=== PATIENT | male | born 1970 | race Hispanic/Latino ===

== ENCOUNTER 2024-04-26 12:33 | Emergency (ER) | payer OTHER ==
[~2024-04-26] VITALS: Ht 182.9 cm; Wt 97.5 kg
[2024-04-26 13:16] LABS: BASOPHILS # (AUTO) 0.03 K/uL (0.00-0.20); BASOPHILS % (AUTO) 0.3 % (0.0-5.0); EOSINOPHILS # (AUTO) 0.12 K/uL (0.00-0.70); EOSINOPHILS % (AUTO) 1.3 % (0.0-8.0); HEMATOCRIT 41.2 % (42-54); IMMATURE GRANULOCYTE ABSOLUTE 0.04 K/uL (0-1); LYMPHOCYTES # (AUTO) 0.7 K/uL (1.0-4.8); LYMPHOCYTES % (AUTO) 8.2 % (21.0-51.0); MEAN CORPUSCULAR HEMOGLOBIN 30.8 pg (27.0-33.0); MEAN CORPUSCULAR HGB CONC 35.4 g/dL (32.0-36.0); MEAN CORPUSCULAR VOLUME 86.9 fL (79-99); MONOCYTES # (AUTO) 0.7 K/uL (0.1-1.0); MONOCYTES % (AUTO) 7.6 % (3.0-13.0); NEUTROPHILS # (AUTO) 7.4 K/uL (1.8-7.7); NEUTROPHILS % (AUTO) 82.2 % (40.0-77.0); PLATELET COUNT (AUTO) 166 K/uL (130-400); RED BLOOD CELL COUNT(AUTO) 4.74 MIL/uL (4.50-6.20); RED CELL DISTRIBUTION WIDTH 12.5 % (11.0-15.5)
[2024-04-26 13:26] LABS: CREATININE 1.1 mg/dL (0.5-1.3); POTASSIUM 3.9 mmol/L (3.5-5.1)
[2024-04-26 13:27] LABS: SARS-CoV-2, RNA, NAAT POSITIVE SARS CoV-2 (NEGATIVE)
[2024-04-26 13:30] LABS: RAPID GROUP A STREP negative (NEGATIVE)
[2024-04-26 13:31] LABS: ALBUMIN 3.5 g/dL (3.5-5.0); BILIRUBIN,TOTAL 0.9 mg/dL (0.2-1.0); TOTAL PROTEIN, SERUM 6.6 g/dL (6.0-8.3)
[2024-04-26 13:40] LABS: INFLUENZA TYPE A Negative For Type A (NEGATIVE); INFLUENZA TYPE B Negative For Type B (NEGATIVE)
[2024-04-26] MEDS: ASPIRIN 81MG CHEW TAB PO ONE (14:35)
[2024-04-26] MEDS: SOLU-MEDROL 125MG VIAL IVP ONE (16:16)
[2024-04-26] MEDS: ACETAMINOPHEN 500 MG TABLET PO ONE (16:17)
[2024-04-26] MEDS ORDERED: IOHEXOL-350 75 ML VIAL IV ONE (16:26)
[2024-04-26] MEDS ORDERED: PRED20TA3 PO (19:10)
[2024-04-26] MEDS ORDERED: AZIT250T9 PO (19:10)
[2024-04-26] MEDS: KETOROLAC 15MG/ML VIAL (15MG/ML) IV ONE (19:41)
[2024-04-26 19:50] VITALS: BP 142/65; PULSE 88; RESP 18; O2SAT 99
[2024-04-27] MEDS ORDERED: ASPIRIN 81MG CHEW TAB PO SCH (09:00)
== END 2024-04-26 20:10 | disposition home or self-care (01) ==
LOC: EDH 12:33
DX: U07.1 COVID-19 (principal); E78.00 Pure hypercholesterolemia, unspecified; E86.0 Dehydration; R55 Syncope and collapse; E03.9 Hypothyroidism, unspecified; K21.9 Gastro-esophageal reflux disease without esophagitis; Z88.0 Allergy status to penicillin
CPT/HCPCS: 99285; 70450; 96374; 71045; 87635; 96375; 84484; 80053; 85025; 87880; 87804 ×2; 36415; 71270; 93005; J2919; J1885; Q9967